=== PATIENT | male | born 1955 | race Caucasian/White ===

== ENCOUNTER → 2020-10-02 | Day surgery (SDC) | payer MEDICARE, SELFPAY ==
[~2020-10-02] VITALS: Ht 193 cm; Wt 90.7 kg
[~2020-10-02] MED LIST: ASCORBIC ACID500 MG PO; CRESTOR10 MG PO; FIBER625 MG PO; LOPRESSOR25 MG PO; NORVASC5 MG PO; ONDANSETRON ODT8 MG PO; PLAVIX75 MG PO; VICODIN 10/3251 EACH PO
[2020-10-02 08:02] LABS: HCT 40.7 % (42.0-52.0); HGB 13.2 g/dl (13.2-18.0); MCHC 32.4 g/dL (32.0-36.0); MCV 95.5 fL (78.0-100.0); MPV 10.6 fL (6.0-9.5); RBC 4.26 M/uL (4.70-6.00); RDW 13.5 % (11.5-14.0); WBC 4.9 K/uL (4.0-10.5)
[2020-10-02 08:19] LABS: ALBUMIN 3.4 g/dL (3.4-5.0); BILIRUBIN - TOTAL 0.9 mg/dL (0.2-1.0); BUN/CREAT RATIO (CALC) 12.9 RATIO; CREATININE 0.85 mg/dL (0.67-1.17); GLOBULIN (CALCULATION) 3.4 g/dL; TOTAL PROTEIN 6.8 g/dL (6.4-8.2)
== END | disposition home or self-care (01) ==
LOC: FAS 07:19
PROVIDERS: Surgery
DX: K40.00 Bilateral inguinal hernia, with obstruction, without gangrene, not specified as recurrent (principal); R94.31 Abnormal electrocardiogram [ECG] [EKG]; Z95.828 Presence of other vascular implants and grafts
CPT/HCPCS: 36415; 80053; 93005; C1781; J0690; J1100; J2250; J2405; J2704; J2710; J3010; J7120

== ENCOUNTER → 2021-07-30 | Day surgery (SDC) | payer MEDICARE ==
[~2021-07-30] VITALS: Ht 193 cm; Wt 90.7 kg
[2021-07-30 10:43] LABS: HCT 42.5 % (42.0-52.0); HGB 13.9 g/dl (13.2-18.0); MCH 30.9 pg (25.0-31.0); MCHC 32.7 g/dL (32.0-36.0); MCV 94.4 fL (78.0-100.0); MPV 10.4 fL (6.0-9.5); RBC 4.5 M/uL (4.70-6.00); RDW 13.3 % (11.5-14.0); WBC 4.9 K/uL (4.0-10.5)
[2021-07-30 11:00] LABS: ALBUMIN 3.7 g/dL (3.4-5.0); BILIRUBIN - TOTAL 1.1 mg/dL (0.2-1.0); BUN/CREAT RATIO (CALC) 11.8 RATIO; CREATININE 0.76 mg/dL (0.67-1.17); GLOBULIN (CALCULATION) 3.7 g/dL; POTASSIUM 4.4 mmol/L (3.5-5.1); TOTAL PROTEIN 7.4 g/dL (6.4-8.2)
== END | disposition home or self-care (01) ==
LOC: FAS 08:55
PROVIDERS: Surgery
DX: K91.872 Postprocedural seroma of a digestive system organ or structure following a digestive system procedure (principal); R19.09 Other intra-abdominal and pelvic swelling, mass and lump; I10 Essential (primary) hypertension; E78.5 Hyperlipidemia, unspecified; F17.210 Nicotine dependence, cigarettes, uncomplicated; Z86.73 Personal history of transient ischemic attack (TIA), and cerebral infarction without residual deficits; Z79.899 Other long term (current) drug therapy
CPT/HCPCS: 36415; 80053; J2250; J2704; J7120